=== PATIENT | female | born 1945 | race Caucasian/White ===

== ENCOUNTER 2016-04-27 12:56 | Emergency (ER) | payer MEDICARE ==
[2016-01-03 16:32] VITALS: BMI 26.4
[~2016-04-27 12:56] MED LIST: BONIVA150 MG PO; CELEXA20 MG PO; COLACE100 MG PO; COLCRYS0.6 MG PO; CRANBERRY PO; CRANBERRY475 MG PO; ELIQUIS2.5 MG PO; FISH OIL 1,0001 CA1 PO; FISH OIL 1,2001 CAP PO; HCTZ25 MG PO; HYDROCODON-ACE1 EAC7 PO; IBUPROFEN600 MG PO; KLOR-CON M2020 MEQ PO; LINZESS145 MCG PO; LISINOPRIL5 MG PO; MOBIC7.5 MG PO; MULTIPLE VITAMI1 TA1 PO; SYNTHROID100 MCG PO; VITAMIN D2000 UNIT PO; VITAMIN D31000 UNI2 PO; ZANTAC300 MG PO
[2016-04-27 18:21] LABS: BASOPHILS 0.1 % (0.0-2.0); EOSINOPHILS 0.1 % (0-7); HEMATOCRIT 34.5 % (36.0-48.0); HEMOGLOBIN 11.9 g/dL (12-16); IMMATURE GRANULOCYTES 0.1 % (0-5); LYMPHOCYTES 8.7 % (15-50); MCH 31.2 pg (26.0-34.0); MCHC 34.5 g/dL (31.0-37.0); MCV 90.3 fL (80.0-100.0); MEAN PLATELET VOLUME 9.2 fL (7.4-10.4); MONOCYTES 6.1 % (2-11); NEUTROPHILS 84.9 % (40-80); PLATELET COUNT 138 10x3/uL (130-400); RBC 3.82 10x6/uL (4.00-5.40); RDW 12.4 % (11.5-14.5); WBC 7.7 10x3/uL (4.8-10.8)
[2016-04-27 18:39] LABS: ALBUMIN 3.5 g/dL (3.4-5.0); ANION GAP 12.6 mmol/L (8-16); BILIRUBIN - TOTAL 0.34 mg/dL (0.2-1.3); CARBON DIOXIDE 27.5 mmol/L (21.0-32.0); CREATININE - SERUM 1.1 mg/dL (0.6-1.3); POTASSIUM - SERUM 4.1 mmol/L (3.5-5.1); PROTEIN - SERUM 6.1 g/dL (6.4-8.2)
== END 2016-04-27 21:48 | disposition home or self-care (01) ==
LOC: D.ER 12:56
PROVIDERS: Physician Assistant
DX: S49.92XA Unspecified injury of left shoulder and upper arm, initial encounter (principal); W01.0XXA Fall on same level from slipping, tripping and stumbling without subsequent striking against object, initial encounter; Y93.B9 Activity, other involving muscle strengthening exercises; Y92.39 Other specified sports and athletic area as the place of occurrence of the external cause; R07.81 Pleurodynia; F17.200 Nicotine dependence, unspecified, uncomplicated

== ENCOUNTER → 2017-10-25 17:00 | Outpatient (CLI) | payer MEDICARE ==
[2016-01-03 16:32] VITALS: BMI 26.4
== END | disposition home or self-care (01) ==
LOC: D.MAMMO 09-24 11:00
DX: Z12.31 Encounter for screening mammogram for malignant neoplasm of breast (principal)

== ENCOUNTER → 2018-04-11 09:28 | Outpatient (CLI) | payer MEDICARE ==
[2016-01-03 16:32] VITALS: BMI 26.4
--- NOTE | ~2018-04-11 | ST ---
PATIENT:MAEGAN DELGADILLO MEDICAL RECORD: [id number] SEX: F LOCATION:[facility] ORDER #: ADMISSION DATE: 04/11/18 AGE OF PATIENT: 72 REFERRING PHYSICIAN: INTERPRETING PHYSICIAN: JEN URENA MD DATE OF SERVICE: 04/11/2018 PROCEDURE: Nuclear stress test. INDICATION: Angina, abnormal ECG, hypertension, shortness of breath. The patient was exercised on standard Lexiscan protocol with 31 mCi of sestamibi injected at peak stress, 11 mCi were used previously for rest images. FINDINGS: Gated SPECT reveals preserved ejection fraction at 79% with good wall motion and thickening and brightening throughout all segments. SPECT imaging Cardiolite was used as myocardial fusion agent. There is homogeneous uptake throughout all segments at rest and stress with no evidence of inducible ischemia or previous infarction. OVERALL IMPRESSION: 1. This is a normal nuclear stress test with no evidence of inducible ischemia or previous infarction. 2. Gated SPECT reveals a preserved ejection fraction at 79%. In this patient with ongoing symptomatology, the current scan does not suggest the presence of hemodynamically significant coronary artery disease. Evaluate noncardiac etiology of chest pain. TRANSINT:[id number] Voice Confirmation ID: [id number] DOCUMENT ID: [id number] JEN URENA MD CC: [id number] DICTATION DATE: 04/12/18 1242 DAIRY CATTLE FARM WORKER: 04/13/18 0050 DEP CLI 04/11/18 [facility] [address] [place] [address]
== END | disposition home or self-care (01) ==
LOC: D.HCCARDIO 09:28
PROVIDERS: ATTEND Internal Medicine Interventional Cardiology
DX: I20.9 Angina pectoris, unspecified (principal)

== ENCOUNTER → 2018-05-24 09:29 | Outpatient (CLI) | payer MEDICARE ==
[2016-01-03 16:32] VITALS: BMI 26.4
[2018-05-24 10:00] LABS: C-REACTIVE PROTEIN 0.9 mg/dL (0.0-0.9); CREATININE - SERUM 1.4 mg/dL (0.6-1.3)
[2018-05-27 16:13] LABS: ANA REFLEX - ANTICHROMATIN ABS <0.2 AI (0.0-0.9); ANA REFLEX - CENTROMERE B ABS <0.2 AI (0.0-0.9); ANA REFLEX - DBL STRANDED DNA <1 IU/mL (0-9); ANA REFLEX - DIRECT Positive (Negative); ANA REFLEX - JO-1 AB <0.2 AI (0.0-0.9); ANA REFLEX - RNP ANTIBODIES 1.1 AI (0.0-0.9); ANA REFLEX - SCL-70 <0.2 AI (0.0-0.9); ANA REFLEX - SJOGRENS AB SSA <0.2 AI (0.0-0.9); ANA REFLEX - SJOGRENS AB SSB <0.2 AI (0.0-0.9); ANA REFLEX - SMITH AB <0.2 AI (0.0-0.9)
== END | disposition home or self-care (01) ==
LOC: D.RT 09:29
PROVIDERS: ATTEND Internal Medicine Pulmonary Disease
DX: R06.00 Dyspnea, unspecified (principal)

== ENCOUNTER 2019-10-15 08:39 | Emergency (ER) | payer MEDICARE ==
[~2019-10-15] VITALS: Ht 152.4 cm; Wt 77.1 kg
[2019-10-15 08:43] VITALS: Ht 152.4 cm; Wt 77.1 kg
[2019-10-15 09:42] LABS: BILIRUBIN NEGATIVE (NEGATIVE); KETONE NEGATIVE (NEGATIVE); NITRITE NEGATIVE (NEGATIVE); UROBILINOGEN NORMAL (NORMAL)
[2019-10-15 09:46] LABS: EPITHELIAL CELLS 0-5 /hpf (0-5); RED CELLS - URINE 0-5 /hpf (0-5)
[2019-10-15 09:47] LABS: BACTERIA FEW /hpf (NONE SEEN)
[2019-10-15 09:49] LABS: BASOPHILS 0.5 % (0-2); EOSINOPHILS 1.5 % (0-7); HEMATOCRIT 40.9 % (36.0-48.0); HEMOGLOBIN 14.2 g/dL (12-16); IMMATURE GRANULOCYTES 0.2 % (0-5); LYMPHOCYTES 17.2 % (15-50); MCH 31.3 pg (26.0-34.0); MCHC 34.7 g/dL (31.0-37.0); MCV 90.3 fL (80.0-100.0); MEAN PLATELET VOLUME 8.7 fL (7.4-10.4); MONOCYTES 8.3 % (2-11); NEUTROPHILS 72.3 % (40-80); PLATELET COUNT 159 10x3/uL (130-400); RBC 4.53 10x6/uL (4.00-5.40); RDW 12.9 % (11.5-14.5)
[2019-10-15 09:57] LABS: CALC OSMOLALITY 281 mosm/kg (275-300); CALCIUM 8.5 mg/dL (8.5-10.1); CHLORIDE - SERUM 104 mmol/L (98-107); CREATININE - SERUM 1.4 mg/dL (0.6-1.3); GLUCOSE 107 mg/dL (74-106); POTASSIUM - SERUM 3.6 mmol/L (3.5-5.1); SODIUM 140 mmol/L (136-145); UREA NITROGEN 20 mg/dL (7-18); eGFR NON AFRICAN AMERICAN 39 mL/min (90-120)
[2019-10-15 09:58] LABS: INR 1.01 (0.85-1.17); PROTIME 13.2 SECONDS (11.6-15.0)
[2019-10-15 09:59] LABS: APTT 30.4 SECONDS (22.8-39.4)
[2019-10-15] MEDS ORDERED: CYCLOBENZAPRINE10 MG PO (10:07)
[2019-10-15 10:13] LABS: ALBUMIN 3.9 g/dL (3.4-5.0); ALKALINE PHOSPHATASE 65 U/L (30-120); ALT (SGPT) 19 U/L (10-68); BILIRUBIN - TOTAL 0.54 mg/dL (0.2-1.3); CKMB 1.8 U/L (0.0-3.6); CREATINE KINASE 126 UL (21-215); MAGNESIUM - SERUM 1.8 mg/dL (1.8-2.4); PROTEIN - SERUM 7.2 g/dL (6.4-8.2); TROPONIN-I < 0.017 ng/mL (0.000-0.060)
[2019-10-15 11:26] VITALS: BP 176/92
== END 2019-10-15 11:28 | disposition other institution (70) ==
LOC: D.ER 08:39
PROVIDERS: Family Medicine
DX: S06.5X0A Traumatic subdural hemorrhage without loss of consciousness, initial encounter (principal); S02.2XXA Fracture of nasal bones, initial encounter for closed fracture; W18.30XA Fall on same level, unspecified, initial encounter; R55 Syncope and collapse; I10 Essential (primary) hypertension; K21.9 Gastro-esophageal reflux disease without esophagitis

== ENCOUNTER 2020-05-02 16:04 | Inpatient (IN) | payer MEDICARE ==
[~2020-05-02] VITALS: Ht 152.4 cm; Wt 83.9 kg
[~2020-05-02 16:04] MED LIST changes: +CYCLOBENZAPRINE10 MG PO
[2020-05-02 16:29] LABS: BASOPHILS 0.6 % (0-2); EOSINOPHILS 1.8 % (0-7); HEMATOCRIT 38.2 % (36.0-48.0); HEMOGLOBIN 13.5 g/dL (12-16); IMMATURE GRANULOCYTES 0.5 % (0-5); LYMPHOCYTE ABS# 2.09 10x3/uL (1.18-3.74); LYMPHOCYTES 26.6 % (15-50); MCH 32.1 pg (26.0-34.0); MCHC 35.3 g/dL (31.0-37.0); MCV 90.7 fL (80.0-100.0); MEAN PLATELET VOLUME 8.9 fL (7.4-10.4); MONOCYTES 8.8 % (2-11); NEUTROPHIL ABS# 4.85 10x3/uL (1.56-6.13); NEUTROPHILS 61.7 % (40-80); RBC 4.21 10x6/uL (4.00-5.40); RDW 12.6 % (11.5-14.5); WBC 7.9 10x3/uL (4.8-10.8)
[2020-05-02 16:35] LABS: ANION GAP 12.3 mmol/L (8-16); APTT 27.3 SECONDS (22.8-39.4); CALCIUM 8.8 mg/dL (8.5-10.1); CARBON DIOXIDE 24.7 mmol/L (21.0-32.0); CREATININE - SERUM 1.5 mg/dL (0.6-1.3); INR 1.17 (0.85-1.17); PROTIME 13.8 SECONDS (11.6-15.0)
[2020-05-02 16:41] LABS: ALBUMIN 3.8 g/dL (3.4-5.0); BILIRUBIN - TOTAL 0.36 mg/dL (0.2-1.3); PLATELET COUNT 229 10x3/uL (130-400); PROTEIN - SERUM 6.9 g/dL (6.4-8.2)
[2020-05-02 21:30] VITALS: BP 142/79
[2020-05-02 22:31] VITALS: BMI 36.2
--- NOTE | 2020-05-03 04:25 | NUR ---
Pt did wake up briefly to request chicken broth. Pt reoriented as she believed it was yesterday afternoon. Pt does not want pain medication at this time. Education provided regarding pain management and calling instead of being stoic. Pt verbalized agreement and understanding of same.
[2020-05-03 06:15] VITALS: BP 131/68
[2020-05-03 06:17] LABS: BASOPHILS 0 % (0-2); EOSINOPHILS 0.1 % (0-7); HEMATOCRIT 34.9 % (36.0-48.0); HEMOGLOBIN 11.6 g/dL (12-16); IMMATURE GRANULOCYTES 0.1 % (0-5); LYMPHOCYTE ABS# 0.54 10x3/uL (1.18-3.74); LYMPHOCYTES 6.4 % (15-50); MCH 30.8 pg (26.0-34.0); MCHC 33.2 g/dL (31.0-37.0); MCV 92.6 fL (80.0-100.0); MONOCYTES 4.7 % (2-11); NEUTROPHIL ABS# 7.52 10x3/uL (1.56-6.13); NEUTROPHILS 88.7 % (40-80); PLATELET COUNT 192 10x3/uL (130-400); RBC 3.77 10x6/uL (4.00-5.40); RDW 12.9 % (11.5-14.5); WBC 8.5 10x3/uL (4.8-10.8)
[2020-05-03 06:34] LABS: ANION GAP 15.3 mmol/L (8-16); CARBON DIOXIDE 21.2 mmol/L (21.0-32.0); CREATININE - SERUM 1.4 mg/dL (0.6-1.3); MAGNESIUM - SERUM 1.8 mg/dL (1.8-2.4); PHOSPHOROUS 3.9 mg/dL (2.5-4.9); POTASSIUM - SERUM 4.5 mmol/L (3.5-5.1)
--- NOTE | 2020-05-03 07:18 | NUR ---
RECIEVED BEDSIDE REPORT. IN BED AWAKE AND ALERT. RESPONDS APPROPRIATELY. FREE FROM SIGNS OF DISTRESS. DENIES NEEDS AT THIS TIME. BED LOW POSITION, CALL LIGHT IN REACH. WILL CONTINUE TO MONITOR.
[2020-05-03 09:03] VITALS: BP 136/80
[2020-05-03] MEDS ORDERED: ASPIRIN81 MG PO (09:21)
[2020-05-03] MEDS ORDERED: HYDROCODON-ACE1 EA10 PO (09:21)
--- NOTE | 2020-05-03 09:26 | OP ---
PATIENT NAME: MAEGAN ALMONTE MEDICAL RECORD: [id number] :41 LOCATION:[facility] ADMISSION DATE:05/02/20 SURGEON: SE GRANDA, DATE OF OPERATION: 05/02/2020 PROCEDURE PERFORMED: Right hip intramedullary nailing. PREOPERATIVE DIAGNOSIS: Right hip basicervical femoral neck fracture. POSTOPERATIVE DIAGNOSIS: Right hip basicervical femoral neck fracture. INDICATIONS: Ms. Almonte is a 74-year-old female who fell today onto her right hip. She had pain and shortening and external rotation. She was brought to the ER. X-rays were taken and there seemed to be, on the x-ray, initially an intertrochanteric fracture. I consented her for a right hip intramedullary nailing. I have talked to her and her about the risks and benefits of the procedure including infection, bleeding, damage to nerves or vessels in the area, continued pain, malunion, nonunion, screw cutout, loss of motion of the hip, blood clots and even and she signed the consent. SURGEON: Dr. Se Granda DESCRIPTION OF PROCEDURE: The patient was taken to the operative suite, laid in supine position, given general anesthetic and intubated. She was then moved over to the [place] table and positioned. A timeout was performed, everyone was in agreement with the correct side, site, patient and procedure. She received a gram of Ancef and a gram of TXA prior to starting. I then made a reduction and once traction was made, it was seen to be a basicervical fracture, which did not change treatment. I still planned on doing an intramedullary nailing. Then, once that was held into place, confirmed to be in good position on AP and lateral. We then prepped and draped the right hip and began the starting point at the greater trochanter just on the medial side of it entering the femoral canal and then reamed over that using the opening reamer and then reamed up to a 13 after measuring the nail length to be a 320. I then reamed up, starting with a 7, went up to a 13 and put down an 11 x 320 nail. Once it was in good position, I put in a lag screw, made another incision over the lateral thigh and the trocar was brought into the femur, then put a pin up into the femoral head. Once this was in adequate and good position on the AP and lateral, I measured it to be 95. We reamed over the pin and put a 95-mm 10.5 lag screw and then took the traction off and used a reduction tool to reduce the fracture. I then locked the nail proximally, the lag screw into the nail and then put in an antirotational screw of 75 mm, that was confirmed to be in good position on AP and lateral and the fracture was reduced nicely. I then went distally and using perfect circles went through the distal dynamic hole with a drill and then measured that screw depth to be a 42. I then put in a distal screw. X-rays were then taken and everything was in good position on AP and lateral. I then irrigated and closed the IT band with #1 Vicryl and then the skin was closed by myself and Cosme Fuchs and ___ closed with 2-0 Vicryl in inverted interrupted fashion. Prineo glue was then placed on the them and once it dried, she was dressed with Telfa and Tegaderm. She was then awakened and taken to recovery in stable condition. Blood loss was approximately 200 mL. COMPLICATIONS: None. TRANSINT:[id number] Voice Confirmation ID: [id number] DOCUMENT ID: [id number] OPERATIVE REPORT [id number] MAEGAN ALMONTE,SE Ramirez DO at 0926 CC: [id number] DICTATION DATE: 05/02/202057 HAND OR MACHINE PASTER: 05/03/20 0019 ADM IN [facility] [address] [place] [address]
[2020-05-03 12:11] VITALS: Ht 152.4 cm; Wt 83.9 kg
[2020-05-03 12:53] VITALS: BP 151/98
[2020-05-03 16:01] VITALS: BP 154/61
[2020-05-03 17:01] LABS: BILIRUBIN NEGATIVE (NEGATIVE); KETONE NEGATIVE (NEGATIVE); NITRITE NEGATIVE (NEGATIVE); UROBILINOGEN NORMAL mg/dL (< 2)
--- NOTE | 2020-05-03 17:13 | NUR ---
OT NOTE: PT REQUIRED MAX A FOR BED MOB TASKS. PT COMPLETED UE AROM ACTIVITIES FOR INCREASED AX TOLERANCE. PT REQUIRED SETUP FOR UB HYGIENE TASKS. [id number] THANK YOU,REBA HUGHES
[2020-05-03 20:00] VITALS: BP 133/57
--- NOTE | 2020-05-03 22:11 | NUR ---
Assumed care of pt after report/rounds. Pt c/o pain but, refuses [place] at this time stating that pain to RLE is tolerable. No bruising to Rt hip area yet. Dressings to incisional areas are CDI. Pt does continue to use ice to Rt hip area with relief achieved.
[2020-05-04] VITALS: BP 119/74
[2020-05-04 04:00] VITALS: BP 143/60
--- NOTE | 2020-05-04 05:16 | NUR ---
Assisted pt with bathing and pt refused to roll for washing back and changing linen. 2 bottles of pills also found in large handbag at bedside and 3 pills found in bed with pt. Pills were Gabapentin that were also one of the bottle of pills. The other bottle of pills along with the gabapentin were placed in the cart until day shift can contact pharmacy today. Pt was encouraged to turn several times and continued to refuse. In bed resting at this time.
[2020-05-04 06:19] LABS: BASOPHILS 0.2 % (0-2); EOSINOPHILS 0.7 % (0-7); HEMOGLOBIN 10.4 g/dL (12-16); IMMATURE GRANULOCYTES 0.2 % (0-5); LYMPHOCYTE ABS# 1.16 10x3/uL (1.18-3.74); LYMPHOCYTES 20.2 % (15-50); MCH 31.2 pg (26.0-34.0); MCHC 33.5 g/dL (31.0-37.0); MCV 93.1 fL (80.0-100.0); MEAN PLATELET VOLUME 8.9 fL (7.4-10.4); MONOCYTES 12.9 % (2-11); NEUTROPHIL ABS# 3.77 10x3/uL (1.56-6.13); NEUTROPHILS 65.8 % (40-80); PLATELET COUNT 163 10x3/uL (130-400); RBC 3.33 10x6/uL (4.00-5.40)
[2020-05-04 06:30] LABS: WBC 5.7 10x3/uL (4.8-10.8)
[2020-05-04 06:33] LABS: ANION GAP 13.1 mmol/L (8-16); CALCIUM 8.3 mg/dL (8.5-10.1); CARBON DIOXIDE 24.1 mmol/L (21.0-32.0); CREATININE - SERUM 1.4 mg/dL (0.6-1.3); PHOSPHOROUS 3.2 mg/dL (2.5-4.9); POTASSIUM - SERUM 4.2 mmol/L (3.5-5.1)
--- NOTE | 2020-05-04 07:00 | NUR ---
PT RESTING QUIETLY IN BED. RESP EVEN AND UNLABORED. PT DENIES PAIN AT THIS TIME. PT REPORTS PAIN WITH MOVEMENT OF RIGHT LOWER EXTREMITY. O2 @ 2L NC IN PLACE. SALINE LOC TO RIGHT AC, IV TO LEFT HAND WITH 1/2 NS @ 75ML/HR INFUSING VIA PUMP. SITES WITHOUT REDNESS OR EDEMA. F/C PATENT TO GRAVITY. DRESSING TO RIGHT HIP C/D/I. DENIES FURTHER NEEDS AT THIS TIME. CL WITHIN REACH. ENCOURAGED TO CALL WITH NEEDS. CONTINUE POC
[2020-05-04 08:38] VITALS: BP 127/73
[2020-05-04 12:15] VITALS: BP 118/67
[2020-05-04 15:49] VITALS: BP 159/70
--- NOTE | 2020-05-04 16:50 | NUR ---
OT NOTE: PT IN BED; ATTEMPTED BED MOB INCLUDING ROLLING SIDE TO SIDE, HOWEVER, PT REQUIRES EXT ASSIST WITH THIS ACT. ATTEMPTED SUPINE TO SIT WITH MAX ASSIST. PT REQUIRES MAX ASSIST X 2 FOR TRANSFER FROM BED TO CHAIR.. D/W PHYS THERAPY WHO REPORTS THAT HE WILL GET HER INTO CHAIR SHORTLY. PT ABLE TO PERFORM UE GROOMING AND FEEDING.. HOWEVER, PT IS EXTREMELY WEAK. SHE WOULD BENEFIT FROM IP REHAB SO THAT SHE CAN RETURN TO [facility]DEP LIVING. EDSON BECKHAM, OTR/L [phone]
--- NOTE | 2020-05-04 19:45 | NUR ---
RECEIVED BEDSIDE REPORT. PT LAYING IN BED A&O X4. PIV TO LEFT HAND, PATENT AND INFUSING, NO REDNESS OR SWELLING. INCISION TO RIGHT HIP, DRSG C/D/I. O2 SAT 97% ON 2L VIA NC. EDUCATED PT ON CL AND NEEDS. BED LOW, CL IN REACH.
[2020-05-04 20:00] VITALS: BP 160/76
[2020-05-05 04:00] VITALS: BP 103/85
[2020-05-05 06:36] LABS: BASOPHILS 0.3 % (0-2); EOSINOPHILS 1.9 % (0-7); HEMATOCRIT 28.5 % (36.0-48.0); HEMOGLOBIN 9.6 g/dL (12-16); IMMATURE GRANULOCYTES 0.3 % (0-5); LYMPHOCYTE ABS# 1.17 10x3/uL (1.18-3.74); LYMPHOCYTES 19.8 % (15-50); MCH 31.1 pg (26.0-34.0); MCHC 33.7 g/dL (31.0-37.0); MCV 92.2 fL (80.0-100.0); MONOCYTES 12.4 % (2-11); NEUTROPHIL ABS# 3.85 10x3/uL (1.56-6.13); NEUTROPHILS 65.3 % (40-80); PLATELET COUNT 163 10x3/uL (130-400); RBC 3.09 10x6/uL (4.00-5.40); RDW 12.8 % (11.5-14.5); WBC 5.9 10x3/uL (4.8-10.8)
[2020-05-05 06:48] LABS: ANION GAP 14.1 mmol/L (8-16); CALCIUM 8.2 mg/dL (8.5-10.1); CARBON DIOXIDE 22.8 mmol/L (21.0-32.0); CREATININE - SERUM 1.3 mg/dL (0.6-1.3); MAGNESIUM - SERUM 1.8 mg/dL (1.8-2.4); PHOSPHOROUS 2.6 mg/dL (2.5-4.9); POTASSIUM - SERUM 3.9 mmol/L (3.5-5.1)
--- NOTE | 2020-05-05 07:00 | NUR ---
PT RESTING QUIETLY IN BED. RESP EVEN AND UNLABORED. PT VOICES INABILITY TO VOID. BLADDER SCAN PERFORMED FINDING 15 ML. PT VOICES THAT SHE HAS NOT HAD A BM SINCE SURGERY AND IS FEELING "FULL" AND NEED FOR A BM. IV TO LEFT HAND 1/2 NS @ 30ML/HR INFUSING VIA PUMP. SITE WITHOUT REDNESS OR EDEMA. DRESSING C/D/I TO RIGHT HIP. O2 @ 2L NC IN PLACE. DENIES NEED FOR PAIN MEDICATION AT THIS TIME. CL WITHIN REACH. ENCOURAGED TO CALL WITH NEEDS. CONTINUE POC
--- NOTE | 2020-05-05 08:00 | NUR ---
PT CONTINUES TO VOICE INABLITY TO VOID. IN AND OUT CATH PERFORMED AT THIS TIME, REMOVED 1000ML CLEAR YELLOW URINE
[2020-05-05 09:10] VITALS: BP 171/67
--- NOTE | 2020-05-05 12:32 | MORECARE ---
CASE MANAGEMENT DISCHARGE SUMMARY PATIENT: MAEGAN DELGADILLO UNIT: [id number] ADM DATE: 05/02/20 AGE: 74 : 43 SEX: F ROOM/BED: D[facility] AUTHOR: SPARKLE,DOC PHYSICIAN: REFERRING PHYSICIAN: DARRIN PAPPAS MD DATE OF SERVICE: 05/05/20 Case Management Discharge Planning Summary COMMENTS ENTERED DATE: 05/05/20 12:24 CT COMMENT TYPE: Discharge Planning REVIEWER: Nikki Ramsey CM met with patient at bedside after obtaining verbal consent. CM discussed availability / needs of home health, REHAB and medical equipment. PATIENT STATES WOULD LIKE TO GO TO [place] FOR REHAB SINCE INSURANCE DECLINED HER FOR INPATIENT REHAB. REFERRAL FAXED TO [place], WAITING CALL BACK. DCP REVIEW SUMMARY ANTICIPATED D/C DATE: EXPECTED LOS : CASE STATUS: DCP Initiated INITIAL REVIEW: 05/02/2020 INITIAL REVIEWER: Nikki Ramsey FINAL DISCHARGE DISPOSITION: : FINAL REVIEWER: FINAL REVIEW DATE: DCP Focus Questions & Answers - Added on: QUESTION: ANSWER : PROVIDER NETWORKING REVIEW DATE: 05/05/2020 SERVICE TYPE: Longterm Facility REVIEWER: Nikki Ramsey PATIENT: MAEGAN DELGADILLO ENCOUNTER: [id number] MEDICAL RECORD#: [id number] ADMISSION DATE: 05/02/2020 DISCHARGE DATE: ATTENDING MD: : AGE: 74 MARITAL STATUS: M DC PLAN ID: [id number] FACILITY: [facility] PRINTED ON: 05/05/20 12:32 CT All edits/amendments must be made on the electronic document DICTATION DATE: 05/05/20 123 MEDICAL AIDES TEACHER: DM 05/05/20 1232 RPT#: [id number] DC DATE: STATUS: ADM IN [facility] [address] [place] [address] END OF REPORT
[2020-05-05 12:35] VITALS: BP 154/77
--- NOTE | 2020-05-05 12:40 | NUR ---
Nutrition follow-up: Diet order: Regular PO intake ~60% average at meals labs reviewed Wt: 185# PO intake good at this time. Waiting for rehab placement Follow-up: 05/10/20
--- NOTE | 2020-05-05 13:49 | NUR ---
HELPED PATIENT GET BACK TO BED MIN ASSIT TO STAND MOD ASSIT TO TRANSFER BACK TO BED
--- NOTE | 2020-05-05 14:37 | NUR ---
RECEIVE SHIFT REPORT. RESTING IN BED. DENIES NEEDS AT THIS TIME. CALL LIGHT IN REACH.
[2020-05-05 16:44] VITALS: BP 170/68
--- NOTE | 2020-05-05 18:05 | NUR ---
PATIENT STATES SHE IS HAVING GOOD AMOUNT OF URINE OUTPUT TODAY. USING BEDPAN. ENCOURAGING HER TO GET UP TO BEDSIDE COMMODE. REFUSING. WILL CONTINUE TO ENCOURAGE.
--- NOTE | 2020-05-05 18:28 | NUR ---
OT NOTE: PT COMPLETED SIMPLE UB HYGIENE WITH SETUP-MIN A. PT COMPLETED BUE AROM EXS TOLERATED. PT COMPLETED BED MOB TASKS WITH MIN A. PT IS WEAK. PT IS MOTIVATED TO RETURN TO [facility]. PT WOULD BENEFIT FROM IP REHAB. [phone] THANK YOU,REBA HUGHES
--- NOTE | 2020-05-05 19:45 | NUR ---
RECEIVED BEDSIDE REPORT. PT LAYING IN BED A&O X4. PIV TO LEFT HAND, PATENT AND INFUSING, NO REDNESS OR SWELLING. O2 SAT 98% ON 2L VIA NC. INCISION TO RIGHT HIP, DRSG C/D/I. PT ABLE TO AMBULATE WITH 2 PERSON ASSIST. EDUCATED PT ON CL AND NEEDS, VERBALIZED UNDERSTANDING. BED LOW, CL IN REACH.
[2020-05-05 20:00] VITALS: BP 164/70
[2020-05-06] VITALS (8 sets, daily range): BP systolic 92–170; BP diastolic 57–95
[2020-05-06 06:13] LABS: BASOPHILS 0.4 % (0-2); EOSINOPHILS 1.4 % (0-7); HEMATOCRIT 27.4 % (36.0-48.0); HEMOGLOBIN 9.6 g/dL (12-16); IMMATURE GRANULOCYTES 0.4 % (0-5); LYMPHOCYTES 17.8 % (15-50); MCH 31.8 pg (26.0-34.0); MCV 90.7 fL (80.0-100.0); MEAN PLATELET VOLUME 8.5 fL (7.4-10.4); MONOCYTES 10.5 % (2-11); NEUTROPHIL ABS# 3.92 10x3/uL (1.56-6.13); NEUTROPHILS 69.5 % (40-80); PLATELET COUNT 176 10x3/uL (130-400); RBC 3.02 10x6/uL (4.00-5.40); RDW 12.6 % (11.5-14.5); WBC 5.6 10x3/uL (4.8-10.8)
[2020-05-06 06:30] LABS: CALCIUM 8.2 mg/dL (8.5-10.1); CARBON DIOXIDE 25.4 mmol/L (21.0-32.0); CREATININE - SERUM 1.1 mg/dL (0.6-1.3); MAGNESIUM - SERUM 1.7 mg/dL (1.8-2.4); PHOSPHOROUS 2.4 mg/dL (2.5-4.9); POTASSIUM - SERUM 3.4 mmol/L (3.5-5.1)
--- NOTE | 2020-05-06 07:30 | NUR ---
PT A/O AND AWAKE UPON SHIFT REPORT. CL IN REACH. DOESN'T HAVE ANY NEEDS AT THIS TIME. WCTM
--- NOTE | 2020-05-06 12:36 | NUR ---
PT IS INSISTING SHE GET BACK IN BED. I EDUCATED HER ABOUT SITTING UP IN THE CHAIR WILL HELP BUILD HER STAMINA. PT STATES SHE DIDN'T SLEEP LAST NIGHT WITH ALL THE THUNDER AND LIGHTENING. CL IN REACH. WILL ASSIST PT BACK TO BED. WCTM
--- NOTE | 2020-05-06 12:55 | NUR ---
OT NOTE: PT PERFORMED WELL TODAY, HOWEVER, REMAINS VERY WEAK. PERFORMED SUPINE TO SIT WITH SPV AND EXTENDED TIME (PT VERY MOTIVATED TO DO MUCH POSSIBLE ON HER OWN)..TOILET TRANSFER FROM BED TO BS COMMODE FOR MIN ASSIST (AND EXT TIME); HYGIENE WITH MIN ASSIST FOR BALANCE; SIT TO STAND EXS X 2 AND PT WAS EXTREMELY FATIGUE FOLLOWING THIS. ATTEMPTED TO TAKE STEPS WITH ASSIST X 2, HOWEVER, PT CONTINUALLY REPORTING THAT SHE FELT LIKE SHE WAS GOING TO PASS OUT. 02 REQUIRED DURING TMT SATS DROPPED TO 87% WITH ACTIVITY. PROBABLY ORTHOSTATIC HYPOTENSION.. NURSING NOTIFIED. EDSON BECKHAM,OTR/L [id number]
[2020-05-07 04:00] VITALS: BP 138/70
[2020-05-07 05:30] LABS: BASOPHILS 0.6 % (0-2); EOSINOPHILS 4.5 % (0-7); HEMATOCRIT 28.3 % (36.0-48.0); HEMOGLOBIN 9.5 g/dL (12-16); IMMATURE GRANULOCYTES 0.8 % (0-5); LYMPHOCYTE ABS# 1.49 10x3/uL (1.18-3.74); LYMPHOCYTES 29.4 % (15-50); MCH 30.8 pg (26.0-34.0); MCHC 33.6 g/dL (31.0-37.0); MCV 91.9 fL (80.0-100.0); MEAN PLATELET VOLUME 8.7 fL (7.4-10.4); MONOCYTES 12.8 % (2-11); NEUTROPHIL ABS# 2.63 10x3/uL (1.56-6.13); NEUTROPHILS 51.9 % (40-80); PLATELET COUNT 208 10x3/uL (130-400); RBC 3.08 10x6/uL (4.00-5.40); RDW 12.7 % (11.5-14.5); WBC 5.1 10x3/uL (4.8-10.8)
[2020-05-07 05:46] LABS: ANION GAP 8.3 mmol/L (8-16); CALCIUM 8.1 mg/dL (8.5-10.1); CARBON DIOXIDE 27.6 mmol/L (21.0-32.0); CREATININE - SERUM 1.2 mg/dL (0.6-1.3); MAGNESIUM - SERUM 1.9 mg/dL (1.8-2.4); POTASSIUM - SERUM 3.9 mmol/L (3.5-5.1)
[2020-05-07 05:55] LABS: PHOSPHOROUS 3.4 mg/dL (2.5-4.9)
[2020-05-07 09:33] VITALS: BP 155/48
--- NOTE | 2020-05-07 12:22 | MORECARE ---
CASE MANAGEMENT DISCHARGE SUMMARY PATIENT: MAEGAN DELGADILLO UNIT: [id number] ADM DATE: 05/02/20 AGE: 74 : 43 SEX: F ROOM/BED: D.2203 AUTHOR: SPARKLE,DOC PHYSICIAN: REFERRING PHYSICIAN: DARRIN PAPPAS MD DATE OF SERVICE: 05/07/20 Case Management Discharge Planning Summary COMMENTS ENTERED DATE: 05/05/20 12:24 CT COMMENT TYPE: Discharge Planning REVIEWER: Nikki Ramsey CM met with patient at bedside after obtaining verbal consent. CM discussed availability / needs of home health, REHAB and medical equipment. PATIENT STATES WOULD LIKE TO GO TO [place] FOR REHAB SINCE INSURANCE DECLINED HER FOR INPATIENT REHAB. REFERRAL FAXED TO [place], WAITING CALL BACK. DCP REVIEW SUMMARY ANTICIPATED D/C DATE: EXPECTED LOS : CASE STATUS: DCP Initiated INITIAL REVIEW: 05/02/2020 INITIAL REVIEWER: Nikki Ramsey FINAL DISCHARGE DISPOSITION: : FINAL REVIEWER: FINAL REVIEW DATE: RIP Focus Questions & Answers - Added on: QUESTION: ANSWER : PROVIDER NETWORKING REVIEW DATE: 05/05/2020 SERVICE TYPE: Long Term Facility REVIEWER: Nikki Ramsey REVIEW DATE: 05/07/2020 SERVICE TYPE: Long Term Facility REVIEWER: Nikki Ramsey PATIENT: MAEGAN DELGADILLO ENCOUNTER: [id number] MEDICAL RECORD#: [id number] ADMISSION DATE: 05/02/2020 DISCHARGE DATE: ATTENDING MD: : AGE: 74 MARITAL STATUS: M DC PLAN ID: [id number] FACILITY: [facility] PRINTED ON: 05/07/20 12:22 CT All edits/amendments must be made on the electronic document DICTATION DATE: 05/07/20 122 MORTGAGE LOAN CLOSER: DM 05/07/20 1222 RPT#: [id number] DC DATE: STATUS: ADM IN [facility] [address] [place] [address] END OF REPORT
[2020-05-07 13:40] VITALS: BP 135/68
--- NOTE | 2020-05-07 16:17 | NUR ---
OT NOTE: PT COMPLETED ORAL HYGIENE WITH SETUP. PT COMPLETED HAIR GROOMING WITH SETUP. PT COMPLETED FACE AND HAND HYGIENE WITH SETUP. PT COMPLETED BED MOB WITH MIN-MOD A. PT IS EASILY FATIGUED. PT COMPLETED BUE AROM EXS TOLERATED. [phone] THANK YOU,REBA HUGHES
[2020-05-07 17:47] VITALS: BP 136/62
[2020-05-07 20:13] VITALS: BP 140/58
[2020-05-08 04:00] VITALS: BP 137/72
[2020-05-08 05:28] LABS: BASOPHILS 0.6 % (0-2); EOSINOPHILS 4.4 % (0-7); HEMATOCRIT 26.4 % (36.0-48.0); HEMOGLOBIN 8.7 g/dL (12-16); LYMPHOCYTES 25.1 % (15-50); MCH 30.3 pg (26.0-34.0); MEAN PLATELET VOLUME 8.6 fL (7.4-10.4); MONOCYTES 12.5 % (2-11); NEUTROPHILS 56.4 % (40-80); PLATELET COUNT 211 10x3/uL (130-400); RBC 2.87 10x6/uL (4.00-5.40); RDW 12.6 % (11.5-14.5); WBC 4.8 10x3/uL (4.8-10.8)
[2020-05-08 05:32] LABS: ANION GAP 9.1 mmol/L (8-16); CALCIUM 8.3 mg/dL (8.5-10.1); CARBON DIOXIDE 28.9 mmol/L (21.0-32.0); CREATININE - SERUM 1.3 mg/dL (0.6-1.3)
--- NOTE | 2020-05-08 07:36 | NUR ---
PATIENT REPORTS PAIN IMPROVING. ABLE TO TRANSFER TO [facility] WITH US OF WALKER AND SET UP HELP.
[2020-05-08 08:36] VITALS: BP 158/79
--- NOTE | 2020-05-08 09:09 | NUR ---
ASSESSMENT PER FLOW SHEET. PATIENT IS WITHOUT DISTRESS. PAIN MEDS ORDERED PER APR 16 TO RIGHT HIP. FALL PREVENTION WITH SILVERIO. IS INSTRUCTED. SCD'S PLACED ON PATIENT.CALL LIGHT IN REACH
[2020-05-08 12:39] VITALS: BP 158/64
[2020-05-08 16:51] VITALS: BP 154/72
[2020-05-08 20:15] VITALS: BP 154/75
[2020-05-09 05:27] LABS: BASOPHILS 0.2 % (0-2); EOSINOPHILS 4.9 % (0-7); HEMATOCRIT 27.2 % (36.0-48.0); HEMOGLOBIN 9.2 g/dL (12-16); IMMATURE GRANULOCYTES 0.7 % (0-5); LYMPHOCYTES 33.2 % (15-50); MCH 30.9 pg (26.0-34.0); MCHC 33.8 g/dL (31.0-37.0); MCV 91.3 fL (80.0-100.0); MEAN PLATELET VOLUME 9.1 fL (7.4-10.4); MONOCYTES 11.3 % (2-11); NEUTROPHIL ABS# 2.25 10x3/uL (1.56-6.13); NEUTROPHILS 49.7 % (40-80); PLATELET COUNT 242 10x3/uL (130-400); RBC 2.98 10x6/uL (4.00-5.40); RDW 12.5 % (11.5-14.5); WBC 4.5 10x3/uL (4.8-10.8)
[2020-05-09 05:41] LABS: ANION GAP 11.6 mmol/L (8-16); CALCIUM 8.2 mg/dL (8.5-10.1); CARBON DIOXIDE 26.3 mmol/L (21.0-32.0); CREATININE - SERUM 1.2 mg/dL (0.6-1.3); POTASSIUM - SERUM 3.9 mmol/L (3.5-5.1)
--- NOTE | 2020-05-09 07:55 | NUR ---
ASSESSMENT PER FLOW SHEET. PATIENT IS WITHOUT DISTRESS. DRESSING X3 TO RIGHT HIP CDI. SCD'S ON AND WORKING.IS INSTRUCTED. WANTS PAIN PILL AFTER BREAKFAST ,PAIN 6/10 TO RIGHT HIP. FALL PREVENTION WITH SILVERIO.CALL LIGHT IN REACH.
[2020-05-09 09:19] VITALS: BP 121/64
[2020-05-09 13:35] VITALS: BP 163/64
[2020-05-09 17:56] VITALS: BP 141/60
--- NOTE | 2020-05-09 18:37 | NUR ---
REMAINS WITHOUT DISTRESS.PAIN MEDS GIVEN ORDERED FOR PAIN 8/10 TO RIGHT HIP.CONT PLAN OF CARE
[2020-05-09 20:00] VITALS: BP 162/71
--- NOTE | 2020-05-09 21:21 | NUR ---
PATIENT REPORTS NO BM TODAY, CONTINUES WITH COLACE AND MIRALAX. ASSIST TO TRANSFER TO [facility]. REPORTS RELIEF OF PAIN WITH PRN NORCO.
[2020-05-10 04:00] VITALS: BP 163/77
[2020-05-10 05:42] LABS: BASOPHILS 0.4 % (0-2); EOSINOPHILS 4.2 % (0-7); HEMATOCRIT 27.4 % (36.0-48.0); HEMOGLOBIN 9.1 g/dL (12-16); IMMATURE GRANULOCYTES 0.8 % (0-5); LYMPHOCYTE ABS# 1.33 10x3/uL (1.18-3.74); LYMPHOCYTES 27.7 % (15-50); MCH 30.6 pg (26.0-34.0); MCHC 33.2 g/dL (31.0-37.0); MCV 92.3 fL (80.0-100.0); MEAN PLATELET VOLUME 8.6 fL (7.4-10.4); MONOCYTES 13.3 % (2-11); NEUTROPHIL ABS# 2.57 10x3/uL (1.56-6.13); NEUTROPHILS 53.6 % (40-80); PLATELET COUNT 252 10x3/uL (130-400); RBC 2.97 10x6/uL (4.00-5.40); RDW 12.6 % (11.5-14.5); WBC 4.8 10x3/uL (4.8-10.8)
[2020-05-10 06:23] LABS: ANION GAP 11.5 mmol/L (8-16); CALCIUM 8.5 mg/dL (8.5-10.1); CARBON DIOXIDE 26.4 mmol/L (21.0-32.0); CREATININE - SERUM 1.2 mg/dL (0.6-1.3); POTASSIUM - SERUM 3.9 mmol/L (3.5-5.1)
[2020-05-10 08:17] VITALS: BP 158/62
--- NOTE | 2020-05-10 10:35 | NUR ---
ASSESSMENT COMPLETED PER FLOW SHEET. PATIENT IS WITHOUT DISTRESS. PAIN MEDS PER MAR ORDERED.
[2020-05-10] MEDS ORDERED: COLACE100 MG PO (10:46)
[2020-05-10] MEDS ORDERED: GABAPENTIN100 MG PO (10:46)
[2020-05-10] MEDS ORDERED: BREO ELLIPTA 11 EACH INH (10:46)
[2020-05-10] MEDS ORDERED: FLOMAX0.4 MG PO (10:46)
--- NOTE | 2020-05-10 11:00 | MORECARE ---
CASE MANAGEMENT DISCHARGE SUMMARY PATIENT: MAEGAN DELGADILLO UNIT: [id number] ADM DATE: 05/02/20 AGE: 74 : 43 SEX: F ROOM/BED: D.2203 AUTHOR: SPARKLE,DOC PHYSICIAN: REFERRING PHYSICIAN: DARRIN PAPPAS MD DATE OF SERVICE: 05/10/20 Case Management Discharge Planning Summary CT Patient Name: MAEGAN DELGADILLO Attending MD : VINNIE- Medical Record: [id number] Encounter : [id number] Facility : [address] [place] [address] Admission Date : 117:12 Center Discharge Date : [address] [place] [address] Date of : IN Plan ID : [id number] Age/Sex/Martia : 74/ F/M Printed on : 05/10/20 10:59 CT DCP Review Details Anticipated D/C: Expected LOS : Case Status : INITIATED - Initial Reviewe: [id number] - Nikki Ramsey Initial Review: 05/02/2020 Planned Disposi: 03 - Discharged/Trans to SNF with Medicare Certification in Anticipation of Skilled Care Final Discharge: - Final Reviewer : : Final Review : Comments CT Entered Date Type Reviewer 05/10/20 10:34 CT Discharge Planning Becca Saucedo Comment Patient has been accepted to [facility]. She will be discharging today and they will be picking her up at 1400. IMM served and signed and CHELA also obtained. Patient stated that she will call her . CM to follow and assist as needed. 05/05/20 12:24 CT Discharge Planning Nikki Ramsey Comment CM met with patient at bedside after obtaining verbal consent. CM discussed availability / needs of home health, REHAB and medical equipment. PATIENT STATES WOULD LIKE TO GO TO [place] FOR REHAB SINCE INSURANCE DECLINED HER FOR INPATIENT REHAB. REFERRAL FAXED TO [place], [facility] CALL BACK. DCP Focus Questions & Answers Provider Networking Review Da : 05/06/19ervice Ty: Intermediate Reviewer : Nikki Ramsey Facility Referral [id number] Provider : [facility] Final Provi: N Review Da : 05/08/19ervice Ty: Intermediate Reviewer : Nikki Ramsey Facility Referral [id number] Provider : [facility] Final Provi: N [facility] MAEGAN DELGADILLO MR#: [id number] /Age/Sex/Firvrz25-Qyi-13 /74/F /M Attending Physician Name: [id number] Patient Account:[id number] [facility] Page -1 of 1 All edits/amendments must be made on the electronic document DICTATION DATE: 05/10/201058 TURNTABLE OPERATOR: DM 05/10/201058 RPT#: [id number] DC DATE: STATUS: ADM IN [facility] [address] [place] [address] END OF REPORT
[2020-05-10 12:11] VITALS: BP 170/68
--- NOTE | 2020-05-10 13:27 | NUR ---
REPORT TO [facility]. SPOKE WITH
--- NOTE | 2020-05-10 13:38 | NUR ---
DISCHARGE INSTRUCTIONS,STATES UNDERSTANDING. WAITING ON TRANSPORT TO [facility].
--- NOTE | 2020-05-10 14:23 | NUR ---
LEFT UNIT VIA WHEELCHAIR FOR TRNSPORT TO [facility]
--- NOTE | 2020-05-10 14:48 | MORECARE ---
CASE MANAGEMENT DISCHARGE SUMMARY PATIENT: MAEGAN DELGADILLO UNIT: [id number] ADM DATE: 05/02/20 AGE: 74 : 43 SEX: F ROOM/BED: D.2203 AUTHOR: SPARKLE,DOC PHYSICIAN: REFERRING PHYSICIAN: DARRIN PAPPAS MD DATE OF SERVICE: 05/10/20 Case Management Discharge Planning Summary CT Patient Name: MAEGAN DELGADILLO Attending MD : VINNIE- Medical Record: [id number] Encounter : [id number] Facility : [address] [place] [address] Medical Admission Date : 117:12 Center Discharge Date : 05/10/[address] [place] [address] Date of : DC Plan ID : [id number] Age/Sex/Martia : 74/ F/M Printed on : 05/10/20 14:46 CT DCP Review Details Anticipated D/C: Expected LOS : Case Status : INITIATED - Initial Reviewe: [id number] - Nikki Ramsey Initial Review: 05/02/2020 Planned Disposi: 03 - Discharged/Trans to SNF with Medicare Certification in Anticipation of Skilled Care Final Discharge: - Final Reviewer : : Final Review : Comments CT Entered Date Type Reviewer 05/10/20 10:34 CT Discharge Planning Becca Saucedo Comment Patient has been accepted to [facility]. She will be discharging today and they will be picking her up at 1400. IMM served and signed and CHELA also obtained. Patient stated that she will call her . CM to follow and assist as needed. 05/05/20 12:24 CT Discharge Planning Nkiki Ramsey Comment CM met with patient at bedside after obtaining verbal consent. CM discussed availability / needs of home health, REHAB and medical equipment. PATIENT STATES WOULD LIKE TO GO TO [place] FOR REHAB SINCE INSURANCE DECLINED HER FOR INPATIENT REHAB. REFERRAL FAXED TO [place], WAITING CALL BACK. DCP Focus Questions & Answers Provider Networking Review Da : 05/06/19ervice Ty: Half-Way Reviewer : Nikki Ramsey Facility Referral [phone] Provider : [facility] Final Provi: N Review Da : 05/08/19ervice Ty: Half-Way Reviewer : Nikki Ramsey Facility Referral [phone] Provider : [facility] Final Provi: N [facility] MAEGAN DELGADILLO MR#: [id number] /Age/Sex/Aactsw26-Tsd-27 /74/F /M Attending Physician Name: [id number] Patient Account:[id number] [facility] Page -1 of 1 All edits/amendments must be made on the electronic document DICTATION DATE: 05/10/201445 TURPENTINE DISTILLER: FALGUNI 05/10/201445 RPT#: [id number] DC DATE:05/10/20 STATUS: [facility] [address] [place] [address] END OF REPORT
--- NOTE | 2020-05-11 11:57 | MORECARE ---
CASE MANAGEMENT DISCHARGE SUMMARY PATIENT: MAEGAN DELGADILLO UNIT: [id number] ADM DATE: 05/02/20 AGE: 74 : 43 SEX: F ROOM/BED: D.2203 AUTHOR: SPARKLE,DOC PHYSICIAN: REFERRING PHYSICIAN: DARRIN PAPPAS MD DATE OF SERVICE: 05/11/20 Case Management Discharge Planning Summary CT Patient Name: MAEGAN DELGADILLO Attending MD : VINNIE- Medical Record: [id number] Encounter : [id number] Facility : [address] [place] [address] Admission Date : 117:12 Center Discharge Date : 05/10/[address] [place] [address] Date of : DC Plan ID : [id number] Age/Sex/Martia : 74/ F/M Printed on : 05/11/20 11:56 CT DCP Review Details Anticipated D/C: Expected LOS : 0 Case Status : INITIATED - Initial Reviewe: [id number] - Nikki Ramsey Initial Review: 05/02/2020 Planned Disposi: 03 - Discharged/Trans to SNF with Medicare Certification in Anticipation of Skilled Care Final Discharge: 03 - Discharged/Trans to SNF with Medicare Certification in Anticipation of Skilled Care Final Reviewer : [id number] : Nikki Ramsey Final Review : 05/11/[address] Entered Date Type Reviewer 05/10/20 10:34 CT Discharge Planning Becca Saucedo Comment Patient has been accepted to [facility]. She will be discharging today and they will be picking her up at 1400. IMM served and signed and CHELA also obtained. Patient stated that she will call her . CM to follow and assist as needed. 05/05/20 12:24 CT Discharge Planning Nikki Ramsey Comment CM met with patient at bedside after obtaining verbal consent. CM discussed availability / needs of home health, REHAB and medical equipment. PATIENT STATES WOULD LIKE TO GO TO [place] FOR REHAB SINCE INSURANCE DECLINED HER FOR INPATIENT REHAB. REFERRAL FAXED TO [place], WAITING CALL BACK. DCP Focus Questions & Answers Provider Networking Review Da : 05/06/19ervice Ty: Long Term Reviewer : Nikki Ramsey Facility Referral [phone] Provider : [facility] Final Provi: N Review Da : 05/08/19ervice Ty: Long Term Reviewer : Nikki Ramsey Facility Referral [id number] Provider : [facility] Final Provi: [facility] MAEGAN DELGADILLO MR#: [id number] /Age/Sex/Lspdxl04-Kjb-68 /74/F /M Attending Physician Name: [id number] Patient Account:[id number] [facility] Page -1 of 1 All edits/amendments must be made on the electronic document DICTATION DATE: 05/11/20 1156 MANAGER POOL: FALGUNI 05/11/20 1156 RPT#: [id number] DC DATE:05/10/20 STATUS: DIS IN [facility] [address] [place] [address] END OF REPORT
--- NOTE | 2020-05-11 12:54 | MORECARE ---
CASE MANAGEMENT DISCHARGE SUMMARY PATIENT: MAEGAN DELGADILLO UNIT: [id number] ADM DATE: 05/02/20 AGE: 74 : 41 SEX: F ROOM/BED: D.2203 AUTHOR: SPARKLE,DOC PHYSICIAN: REFERRING PHYSICIAN: DARRIN PAPPAS MD DATE OF SERVICE: 05/11/20 Case Management Discharge Planning Summary CT Patient Name: MAEGAN DELGADILLO Attending MD : VINNIE- Medical Record: [id number] Encounter : [id number] Facility : [address] [place] [address] Admission Date : 117:12 Center Discharge Date : 05/10/[address] [place] [address] Date of : DC Plan ID : [id number] Age/Sex/Martia : 74/ F/M Printed on : 05/11/20 12:53 CT DCP Review Details Anticipated D/C: Expected LOS : 0 Case Status : INITIATED - Initial Reviewe: [id number] - Nikki Ramsey Initial Review: 05/02/2020 Planned Disposi: 03 - Discharged/Trans to SNF with Medicare Certification in Anticipation of Skilled Care Final Discharge: 03 - Discharged/Trans to SNF with Medicare Certification in Anticipation of Skilled Care Final Reviewer : [id number] : Nikki Ramsey Final Review : 05/11/[address] Entered Date Type Reviewer 05/10/20 10:34 CT Discharge Planning Becca Saucedo Comment Patient has been accepted to [facility]. She will be discharging today and they will be picking her up at 1400. IMM served and signed and CHELA also obtained. Patient stated that she will call her . CM to follow and assist as needed. 05/05/20 12:24 CT Discharge Planning Nikki Ramsey Comment CM met with patient at bedside after obtaining verbal consent. CM discussed availability / needs of home health, REHAB and medical equipment. PATIENT STATES WOULD LIKE TO GO TO [facility] FOR REHAB SINCE INSURANCE DECLINED HER FOR INPATIENT REHAB. REFERRAL FAXED TO [facility], WAITING CALL BACK. DCP [employer] Provider Networking Review Da : 05/06/19ervice Ty: Usp Reviewer : Nikki Ramsey Facility Referral [id number] Provider : [facility] Final Provi: N Review Da : 05/08/19ervice Ty: Usp Reviewer : Nikki Ramsey Facility Referral [id number] Provider : [facility] Final Provi: [facility] MAEGAN DELGADILLO MR#: [id number] /Age/Sex/[id number]-Yyt-85 /74/F /M Attending Physician Name: [id number] Patient Account:[id number] [facility]ly [facility] Page -1 of 1 All edits/amendments must be made on the electronic document DICTATION DATE: 05/11/20 1253 SENIOR SOFTWARE DEVELOPER: [email or web address] 05/11/20 1253 RPT#: [id number] DC DATE:05/10/20 STATUS: DIS IN [facility] [address] [place] [address] END OF REPORT
== END 2020-05-10 14:20 | DRG 481 ==
LOC: D.ER 16:04 → D.MS 17:12 → D.SDCHOLD 05-03 16:41 → D.MS 05-03 16:42
PROVIDERS: Family Medicine; Orthopaedic Surgery; ADMIT Family Medicine; ATTEND Family Medicine
PROC: 0QS606Z Reposition Right Upper Femur with Intramedullary Internal Fixation Device, Open Approach (ICD-10-PCS; principal; 2020-05-02 18:30)
DX: S72.001A Fracture of unspecified part of neck of right femur, initial encounter for closed fracture (principal); N17.9 Acute kidney failure, unspecified; D62 Acute posthemorrhagic anemia; W19.XXXA Unspecified fall, initial encounter; I10 Essential (primary) hypertension; K21.9 Gastro-esophageal reflux disease without esophagitis; E03.9 Hypothyroidism, unspecified; E78.5 Hyperlipidemia, unspecified; M19.90 Unspecified osteoarthritis, unspecified site; R33.9 Retention of urine, unspecified; F41.9 Anxiety disorder, unspecified

== ENCOUNTER → 2020-05-17 21:17 | Outpatient (CLI) | payer MEDICARE ==
[~2020-05-17 21:17] MED LIST changes: +ASPIRIN81 MG PO; +BREO ELLIPTA 11 EACH INH; +FLOMAX0.4 MG PO; +GABAPENTIN100 MG PO; +HYDROCODON-ACE1 EA10 PO
[2020-05-17 21:46] LABS: BASOPHILS 0.3 % (0-2); EOSINOPHILS 2.9 % (0-7); HEMATOCRIT 31.4 % (36.0-48.0); HEMOGLOBIN 10.2 g/dL (12-16); IMMATURE GRANULOCYTES 0.3 % (0-5); LYMPHOCYTE ABS# 1.11 10x3/uL (1.18-3.74); LYMPHOCYTES 18.9 % (15-50); MCHC 32.5 g/dL (31.0-37.0); MCV 95.4 fL (80.0-100.0); NEUTROPHIL ABS# 4.01 10x3/uL (1.56-6.13); NEUTROPHILS 68.6 % (40-80); RBC 3.29 10x6/uL (4.00-5.40); RDW 13.6 % (11.5-14.5); WBC 5.9 10x3/uL (4.8-10.8)
[2020-05-17 21:59] LABS: ALBUMIN 3.3 g/dL (3.4-5.0); ANION GAP 12.1 mmol/L (8-16); BILIRUBIN - TOTAL 0.38 mg/dL (0.2-1.3); CALCIUM 8.3 mg/dL (8.5-10.1); CARBON DIOXIDE 27.9 mmol/L (21.0-32.0); CREATININE - SERUM 1.3 mg/dL (0.6-1.3); PLATELET COUNT 388 10x3/uL (130-400); PROTEIN - SERUM 6.1 g/dL (6.4-8.2); THYROID STIMULATING HORMONE 1.31 uIU/mL (0.36-3.74)
== END | disposition home or self-care (01) ==
LOC: D.LABREF 21:17
PROVIDERS: Family Medicine
DX: N17.8 Other acute kidney failure (principal); I10 Essential (primary) hypertension